=== PATIENT | female | born 1940 | race Caucasian/White ===

== ENCOUNTER 2017-10-25 14:19 | Emergency (ER) | payer MEDICARE, OTHER ==
[2017-10-25 14:31] VITALS: BP 123/86; PULSE 82; RESP 18; TEMP 98.4
--- NOTE | 2017-10-25 14:42 | ED ---
ENT HPI - General Chief complaint: ENT Stated complaint: lac on corner of mouth Time Seen by Provider: 10/25/17 14:32 Source: patient, RN notes reviewed Mode of arrival: ambulatory Limitations: no limitations - History of Present Illness Initial comments: This is a 77-year-old female who presents to the emergency department with chief complaint of laceration to the corner of her mouth. Patient states that prior to arrival she was cleaning her dentures. She states that she slipped and accidentally cut the corner of her mouth with her fingernail. She states that initially she was unable to get the bleeding to stop. Denies being on any blood thinners. Denies any other injury or trauma. Denies fever, chills, chest pain, shortness of breath, abdominal pain, nausea or vomiting, constipation or diarrhea, dysuria or hematuria, numbness or tingling, headache or vision changes. - Related Data Home Medications Medication Instructions Recorded Confirmed Levothyroxine Sodium [Synthroid] 25 mcg PO QAM 03/10/16 05/05/16 Previous Rx's Medication Instructions Recorded Acetaminophen Tab [Tylenol] 500 mg PO Q6HR PRN #0 tab 05/10/16 Folic Acid 1 mg PO DAILY@1200 tab 05/10/16 HYDROcodone/APAP 7.5-325MG [[place] 1 tab PO Q6HR PRN #28 tab 05/10/16 7.5-325] Metoprolol Tartrate [Lopressor] 25 mg PO BID tab 05/10/16 Multivitamins, Thera [Multivitamin 1 each PO DAILY@1200 tab 05/10/16 (formulary)] Pantoprazole [Protonix] 40 mg PO AC-BRKFST tablet. 05/10/16 Thiamine [Vitamin B-1] 100 mg PO DAILY@1200 tab 05/10/16 Allergies Allergy/AdvReac Type Severity Reaction Status Date / Time erythromycin base Allergy Nausea & Verified 10/25/17 14:31 Vomiting Review of Systems ROS Statement: Those systems with pertinent positive or pertinent negative responses have been documented in the HPI. ROS Other: All systems not noted in ROS Statement are negative. Past Medical History Past Medical History: Hypertension, Thyroid Disorder Additional Past Medical History / Comment(s): 10/05/15:IP ADM @ [facility], BOWEL OBSTRUCTION/" BOWEL". COLOSTOMY History of Any Multi-Drug Resistant Organisms: None Reported Past Surgical History: Bowel Resection Additional Past Surgical History / Comment(s): BOWEL RESECTION WITH COLOSTOMY., COLONOSCOPY 03/15/16, 05-05-16 REVERSAL OF COLOSTOMY, INC HERNA REPAIR Past Anesthesia/Blood Transfusion Reactions: No Reported Reaction Past Psychological History: No Psychological Hx Reported Smoking Status: Former smoker Past Alcohol Use History: Rare Past Drug Use History: None Reported - Past Family History Father Family Medical History: Myocardial Infarction ([place]) Mother History Unknown: Yes General Exam - General Exam Comments Initial Comments: General: Awake and alert, well-developed; in no apparent distress. HEENT: Head atraumatic, normocephalic. Pupils are equal, round and reactive to light. Extraocular movements intact. Oropharynx moist without erythema or exudate. Dried blood noted at the left corner of mouth. After cleaning, there is a minor superficial abrasion to the left lower lip. No active bleeding. Neck: Supple. Normal ROM. Cardiovascular: Regular rate and rhythm. No murmurs, rubs or gallops. Chest symmetrical. Respiratory: Lungs clear to auscultation bilaterally. No wheezes, rales or rhonchi. Normal respiratory effort with no use of accessory muscles. Musculoskeletal: Normal ROM, no tenderness bilateral upper and lower extremities. Ambulating normally. Neurological: Alert and oriented x3. CN II-XII grossly intact. Speech is fluent and answers are appropriate. No focal neuro deficits. Psychiatric: Normal mood and affect. No overt signs of depression or anxiety noted. Limitations: no limitations Course Vital Signs 10/25/17 14:28 Temperature 98.4 F Pulse Rate 82 Respiratory 18 Rate Blood Pressure 123/86 O2 Sat by Pulse 98 Oximetry Medical Decision Making - Medical Decision Making This is a 77-year-old female who presents to the emergency department with chief complaint of laceration to the corner of her mouth. Patient states that she cut the corner of her mouth with her fingernail while cleaning her dentures. There is no active bleeding. No lacerations. Minor superficial abrasion to the left lower lip. Patient is in no acute distress and will be discharged home. She is in agreement and voices understanding. All questions were answered. Disposition Clinical Impression: Lip abrasion Disposition: HOME SELF-CARE Condition: Good Instructions: Abrasion (ED) Additional Instructions: If bleeding recurs, please hold tight pressure for at least 10-15 minutes. Please follow up with primary care provider within 1-2 days. Return to emergency department if symptoms should worsen or any concerns arise. Referrals: Gigi Dailey DO [Primary Care Provider] - 1-2 days Time of Disposition: 14:41
== END 2017-10-25 14:53 | disposition home or self-care (01) ==
LOC: EC 14:19
DX: S00.511A Abrasion of lip, initial encounter (principal); E07.9 Disorder of thyroid, unspecified; Z87.891 Personal history of nicotine dependence; Z79.899 Other long term (current) drug therapy; Z88.1 Allergy status to other antibiotic agents; W01.0XXA Fall on same level from slipping, tripping and stumbling without subsequent striking against object, initial encounter; Y93.89 Activity, other specified
CPT/HCPCS: 99282

== ENCOUNTER → 2018-12-11 | Outpatient (CLI) | payer MEDICARE, OTHER ==
--- NOTE | 2018-12-11 18:24 | US ---
EXAMINATION TYPE: US venous doppler duplex LE LT DATE OF EXAM: 12/11/2018 5:54 PM COMPARISON: NONE CLINICAL HISTORY: R60.0 EDEMA. SIDE PERFORMED: Left TECHNIQUE: The lower extremity deep venous system is examined utilizing real time linear array sonog edgar with graded compression, doppler sonography and color-flow sonography. VESSELS IMAGED: External Iliac Vein (EIV) Common Femoral Vein Deep Femoral Vein Greater Saphenous Vein * Femoral Vein Popliteal Vein Small Saphenous Vein * Proximal Calf Veins (* superficial vessels) Left Leg: Negative for DVT Grayscale, color doppler, spectral doppler imaging performed of the deep veins of the left lower extr emity. There is normal flow, compressibility, vascular waveforms. IMPRESSION: No ultrasound evidence for acute DVT in the left lower extremity.
--- NOTE | 2018-12-12 07:11 | XR ---
EXAMINATION TYPE: XR tibia fibula LT DATE OF EXAM: 12/11/2018 COMPARISON: NONE HISTORY: Pain and swelling TECHNIQUE: Two views are submitted. FINDINGS: The osseous structures are intact. The joint spaces are preserved. Soft tissue edema noted. Arthrop athy of the knee joint. Calcification along the medial margin near the ankle joint within the soft ti ssues. IMPRESSION: 1. No acute osseous abnormality.
--- NOTE | 2018-12-12 07:20 | XR ---
EXAMINATION TYPE: XR ankle complete LT DATE OF EXAM: 12/11/2018 COMPARISON: NONE HISTORY: Pain and swelling FINDINGS: Three views of the ankle demonstrate the ankle mortise to be intact and symmetric. The joint spaces are preserved. The osseous structures are intact. Soft tissue edema noted. Calcification adjacent t o the medial malleolus within the soft tissues. IMPRESSION: 1. No definite acute fracture or dislocation, if symptoms persist follow-up study in 7 to 10 days wou ld be suggested. 2. Diffuse soft tissue edema.
== END | disposition home or self-care (01) ==
LOC: RADUSWWP 16:55
PROVIDERS: ATTEND Family Medicine
DX: R60.0 Localized edema (principal); M79.605 Pain in left leg

== ENCOUNTER 2019-08-27 15:17 | Emergency (ER) | payer MEDICARE, OTHER ==
[2019-08-27 15:35] VITALS: TEMP 98
--- NOTE | 2019-08-27 16:08 | ED ---
General Adult HPI - General Chief complaint: ENT Stated complaint: Sore throat Time Seen by Provider: 08/27/19 15:35 Source: patient, RN notes reviewed, old records reviewed Mode of arrival: ambulatory Limitations: no limitations - History of Present Illness Initial comments: This is a 79-year-old female presents emergency department stating that she's had a sore throat for 6 days. Patient denies any fever or chills. Patient states she's had this for the past. Patient denies any cough patient denies any difficulty breathing shortest breath per patient denies any chest pain. Patient denies any back pain. Patient denies any abdominal pain. Patient states the throat hurts pretty constantly. Patient is a poor historian and she has some difficulty understanding the questions. - Related Data Home Medications Medication Instructions Recorded Confirmed Levothyroxine Sodium [Synthroid] 25 mcg PO QAM 03/10/16 05/05/16 Previous Rx's Medication Instructions Recorded Acetaminophen Tab [Tylenol] 500 mg PO Q6HR PRN #0 tab 05/10/16 Folic Acid 1 mg PO DAILY@1200 tab 05/10/16 HYDROcodone/APAP 7.5-325MG [[place] 1 tab PO Q6HR PRN #28 tab 05/10/16 7.5-325] Metoprolol Tartrate [Lopressor] 25 mg PO BID tab 05/10/16 Multivitamins, Thera [Multivitamin 1 each PO DAILY@1200 tab 05/10/16 (formulary)] Pantoprazole [Protonix] 40 mg PO AC-BRKFST tablet. 05/10/16 Thiamine [Vitamin B-1] 100 mg PO DAILY@1200 tab 05/10/16 Amoxicillin 500 mg PO Q8H #30 capsule 08/27/19 predniSONE [Deltasone] 40 mg PO DAILY #8 tab 08/27/19 Allergies Allergy/AdvReac Type Severity Reaction Status Date / Time erythromycin base Allergy Nausea & Verified 08/27/19 15:35 Vomiting Review of Systems ROS Statement: Those systems with pertinent positive or pertinent negative responses have been documented in the HPI. ROS Other: All systems not noted in ROS Statement are negative. Past Medical History Past Medical History: Hypertension, Thyroid Disorder Additional Past Medical History / Comment(s): 10/05/15:IP ADM @ [facility], BOWEL OBSTRUCTION/" BOWEL". COLOSTOMY History of Any Multi-Drug Resistant Organisms: None Reported Past Surgical History: Bowel Resection Additional Past Surgical History / Comment(s): BOWEL RESECTION WITH COLOSTOMY., COLONOSCOPY 03/15/16, 05-05-16 REVERSAL OF COLOSTOMY, INC HERNA REPAIR Past Anesthesia/Blood Transfusion Reactions: No Reported Reaction Past Psychological History: No Psychological Hx Reported Smoking Status: Former smoker Past Alcohol Use History: Rare Past Drug Use History: None Reported - Past Family History Father Family Medical History: Myocardial Infarction ([place]) Mother History Unknown: Yes General Exam - General Exam Comments Initial Comments: GENERAL: Patient is well-developed and well-nourished. Patient is nontoxic and well- hydrated and is in mild distress. ENT: Neck is soft and supple. Patient had some cervical lymphadenopathy with some tenderness to palpation. Oropharynx is clear. Moist mucous membranes. Neck has full range of motion without eliciting any pain. EYES: The sclera were anicteric and conjunctiva were pink and moist. Extraocular movements were intact and pupils were equal round and reactive to light. Eyelids were unremarkable. PULMONARY: Unlabored respirations. Good breath sounds bilaterally. No audible rales rhonchi or wheezing was noted. CARDIOVASCULAR: There is a regular rate and rhythm without any murmurs gallops or rubs. ABDOMEN: Soft and nontender with normal bowel sounds. SKIN: Skin is clear with no lesions or rashes and otherwise unremarkable. NEUROLOGIC: Patient is alert and oriented x3. Cranial nerves II through XII are grossly intact. Motor and sensory are also intact. MUSCULOSKELETAL: Normal extremities with adequate strength and full range of motion. LYMPHATICS: No significant lymphadenopathy is noted PSYCHIATRIC: Normal psychiatric evaluation. Limitations: no limitations Course Vital Signs 08/27/19 15:32 Temperature 98 F Pulse Rate 69 Respiratory 16 Rate Blood Pressure 140/71 O2 Sat by Pulse 98 Oximetry Disposition Clinical Impression: Pharyngitis Disposition: HOME SELF-CARE Instructions (If sedation given, give patient instructions): Pharyngitis (ED) Prescriptions: Amoxicillin 500 mg PO Q8H #30 capsule predniSONE [Deltasone] 40 mg PO DAILY #8 tab Is patient prescribed a controlled substance at d/c from ED?: No Referrals: Gigi Dailey DO [Primary Care Provider] - 1-2 days Time of Disposition: 16:08
[2019-08-27 16:27] VITALS: BP 148/78; PULSE 67; RESP 18
== END 2019-08-27 16:25 | disposition home or self-care (01) ==
LOC: EC 15:17
DX: J02.9 Acute pharyngitis, unspecified (principal); E07.9 Disorder of thyroid, unspecified; I10 Essential (primary) hypertension; Z79.890 Hormone replacement therapy; Z88.1 Allergy status to other antibiotic agents; Z87.891 Personal history of nicotine dependence
CPT/HCPCS: 99283

== ENCOUNTER 2019-10-04 16:00 | Emergency (ER) | payer MEDICARE, OTHER ==
[2019-10-04] MEDS ORDERED: MAG HYDROX/AL HYDROX/SIMETH 30 ML, HYOSCYAMINE ELIXIR 10 ML, LIDOCAINE VISCOUS 2% 10 ML PO STA ×3 (16:18)
--- NOTE | 2019-10-04 16:26 | ED ---
ENT HPI - General Chief complaint: ENT Stated complaint: Throat and abd pain Time Seen by Provider: 10/04/19 16:06 Source: patient Mode of arrival: ambulatory Limitations: no limitations - History of Present Illness Initial comments: Patient is a 79-year-old female presenting to emergency Department with complaints of a sore throat 1 week. Patient states her throat started to feel dry a few days ago and has just increased into more discomfort. She states feels painful and burning that seems to travel down her throat a bit. Patient denies having a fever, cough, shortness of breath, chest pain. She is has no nausea, vomiting, diarrhea. She has not tried any medication for this. She says she has gargled with salt water a few times without improvement. She has no other complaints at this time. Upon arrival to ER, her vitals are stable. - Related Data Home Medications Medication Instructions Recorded Confirmed Levothyroxine Sodium [Synthroid] 25 mcg PO QAM 03/10/16 05/05/16 Previous Rx's Medication Instructions Recorded Acetaminophen Tab [Tylenol] 500 mg PO Q6HR PRN #0 tab 05/10/16 Folic Acid 1 mg PO DAILY@1200 tab 05/10/16 HYDROcodone/APAP 7.5-325MG [[place] 1 tab PO Q6HR PRN #28 tab 05/10/16 7.5-325] Metoprolol Tartrate [Lopressor] 25 mg PO BID tab 05/10/16 Multivitamins, Thera [Multivitamin 1 each PO DAILY@1200 tab 05/10/16 (formulary)] Pantoprazole [Protonix] 40 mg PO AC-BRKFST tablet. 05/10/16 Thiamine [Vitamin B-1] 100 mg PO DAILY@1200 tab 05/10/16 Amoxicillin 500 mg PO Q8H #30 capsule 08/27/19 predniSONE [Deltasone] 40 mg PO DAILY #8 tab 08/27/19 Omeprazole 20 mg PO DAILY 30 Days #30 10/04/19 capsule. Allergies Allergy/AdvReac Type Severity Reaction Status Date / Time erythromycin base Allergy Nausea & Verified 10/04/19 16:05 Vomiting Review of Systems ROS Statement: Those systems with pertinent positive or pertinent negative responses have been documented in the HPI. ROS Other: All systems not noted in ROS Statement are negative. Past Medical History Past Medical History: Hypertension, Thyroid Disorder Additional Past Medical History / Comment(s): 10/05/15:IP ADM @ [facility], BOWEL OBSTRUCTION/" BOWEL". COLOSTOMY History of Any Multi-Drug Resistant Organisms: None Reported Past Surgical History: Bowel Resection, Hernia Repair Additional Past Surgical History / Comment(s): BOWEL RESECTION WITH COLOSTOMY., COLONOSCOPY 03/15/16, 05-05-16 REVERSAL OF COLOSTOMY, INC HERNA REPAIR Past Anesthesia/Blood Transfusion Reactions: No Reported Reaction Past Psychological History: No Psychological Hx Reported Smoking Status: Former smoker Past Alcohol Use History: Rare Past Drug Use History: None Reported - Past Family History Father Family Medical History: Myocardial Infarction ([place]) Mother History Unknown: Yes General Exam - General Exam Comments Initial Comments: GENERAL: Well-appearing, well-nourished and in no acute distress. HEAD: Atraumatic, normocephalic. EYES: Pupils equal round and reactive to light, extraocular movements intact, sclera anicteric, conjunctiva are normal. ENT: TMs normal, nares patent, oropharynx clear without exudates. Moist mucous membranes. NECK: Normal range of motion, supple without lymphadenopathy or JVD. LUNGS: Breath sounds clear to auscultation bilaterally and equal. No wheezes rales or rhonchi. HEART: Regular rate and rhythm without murmurs, rubs or gallops. ABDOMEN: Soft, nontender, normoactive bowel sounds. No guarding, no rebound. No masses appreciated. : Deferred EXTREMITIES: Normal range of motion, no pitting or edema. No clubbing or cyanosis. NEUROLOGICAL: Normal speech, normal gait. PSYCH: Normal mood, normal affect. SKIN: Warm, Dry, normal turgor, no rashes or lesions noted. Limitations: no limitations Course Vital Signs 10/04/19 10/04/19 16:01 17:03 Temperature 98.1 F 98.0 F Pulse Rate 75 70 Respiratory 18 17 Rate Blood Pressure 137/74 134/78 O2 Sat by Pulse 97 99 Oximetry Medical Decision Making - Medical Decision Making Patient is a 39-year-old female presenting with sore throat 1 week. Vital signs are stable. Exam is unremarkable. Patient was given a GI cocktail. She reports improvement in her symptoms. I discussed with patient this could be viral in nature or related to heartburn. Patient will be given a prescription for omeprazole to help with her symptoms. She has no chest pain, no shortness of breath. She will follow-up with her PCP. She is in agreement with this plan of care. Return parameters were discussed with the patient she verbalized understanding. Disposition Clinical Impression: Sore throat, Heartburn symptom Disposition: HOME SELF-CARE Condition: Stable Instructions (If sedation given, give patient instructions): Pharyngitis (ED) Additional Instructions: Please return to the Emergency Department if symptoms worsen or any other concerns. May take Tylenol or Motrin for discomfort. Take omeprazole as prescribed. Follow-up with PCP. Prescriptions: Omeprazole 20 mg PO DAILY 30 Days #30 capsule.dr Is patient prescribed a controlled substance at d/c from ED?: No Referrals: Gigi Dailey DO [Primary Care Provider] - 1-2 days
[2019-10-04 17:08] VITALS: BP 134/78; PULSE 70; RESP 17; TEMP 98
== END 2019-10-04 17:03 | disposition home or self-care (01) ==
LOC: EC 16:00
DX: J02.9 Acute pharyngitis, unspecified (principal); R12 Heartburn; I10 Essential (primary) hypertension; E07.9 Disorder of thyroid, unspecified; Z79.890 Hormone replacement therapy; Z88.1 Allergy status to other antibiotic agents; Z87.19 Personal history of other diseases of the digestive system; Z87.891 Personal history of nicotine dependence
CPT/HCPCS: 99283

== ENCOUNTER → 2019-10-10 | Outpatient (CLI) | payer MEDICARE, OTHER ==
--- NOTE | 2019-10-10 12:41 | XR ---
EXAMINATION TYPE: XR chest 2V DATE OF EXAM: 10/10/2019 COMPARISON: May 14 HISTORY: Chest pain TECHNIQUE: Frontal and lateral views of the chest are obtained. FINDINGS: There is no focal air space opacity, pleural effusion, or pneumothorax seen. Stable benign calcified right-sided granulomas. Tortuosity of the descending thoracic aorta. The cardiac silhouet te size is within normal limits. Old healed fracture deformity of the posterior lateral left third ri b. Exaggerated thoracic kyphosis and mild multilevel degenerative changes of spine. Diffuse osseous d emineralization. IMPRESSION: No acute cardiopulmonary process.
== END | disposition home or self-care (01) ==
LOC: RADXRMAIN 11:44
PROVIDERS: ATTEND Otolaryngology
DX: R07.9 Chest pain, unspecified (principal)
CPT/HCPCS: 71046